=== PATIENT | female | born 1950 | race Caucasian/White ===

== ENCOUNTER 2017-02-18 18:16 | Outpatient (CLI) | payer OTHER ==
--- NOTE | 2017-02-18 19:48 | DIAGNOSTIC IMAGING REPORT ---
PROCEDURE: XR CHEST 2 VIEW INDICATION: COUGH TECHNIQUE: PA and lateral view. COMPARISON: None. FINDINGS: Mild left basilar atelectasis. Cardiovascular structures are normal. Moderate degenerative changes of the spine. IMPRESSION: 1. Mild left basilar atelectasis.
== END 2017-02-18 23:00 ==
LOC: XR SRH 18:16
DX: R05 Cough (principal)

== ENCOUNTER 2017-03-24 12:25 | Outpatient (CLI) | payer OTHER ==
--- NOTE | 2017-03-25 16:38 | DIAGNOSTIC IMAGING REPORT ---
PROCEDURE: NM CARDIAC STRESS TEST INDICATION: left bundle branch block and a preoperative evaluation TECHNIQUE: 10 mCi technetium 99m labeled sestamibi used for rest imaging 30 mCi for stress imaging. This is an exercise stress test. The patient achieved 103% of age-predicted maximum. Baseline EKG showed left bundle branch block and exercise EKG was not interpretable due to left bundle-branch block. COMPARISON: None FINDINGS: SPECT imaging shows normal perfusion. Gated SPECT imaging shows ejection fraction 75% end-diastolic volume 55 ml end-systolic volume 13 ml and normal wall thickening wall motion. There is no transient ischemic dilatation with a t.i.d. score of 0.81. IMPRESSION: 1. No infarct or ischemia. Normal left ventricular size and ejection fraction. This is a low risk study.
== END 2017-03-24 23:00 ==
LOC: NM SRH 12:25
DX: Z01.810 Encounter for preprocedural cardiovascular examination (principal); R94.31 Abnormal electrocardiogram [ECG] [EKG]; Z01.818 Encounter for other preprocedural examination